=== PATIENT | female | born 1975 | race Two or more races ===

== ENCOUNTER → 2020-05-03 | Outpatient (CLI) | payer OTHER ==
[~2020-05-03] MED LIST: LOVA10TA PO; OMEP20TA62 PO; VALA500T4 PO
[2020-05-03 17:08] LABS: BASOPHILS % (AUTO) 1 % (0-1); EOSINOPHILS % (AUTO) 2 % (1-7); LYMPHOCYTES % (AUTO) 30 % (22-44); MEAN CORPUSCULAR HGB CONC 32.2 g/dL (32.4-35.8); MEAN PLATELET VOLUME 10.1 fL (7.4-10.4); MONOCYTES % (AUTO) 5 % (2-9); NEUTROPHILS % (AUTO) 63 % (42-75); PLATELET COUNT 465 x10^3/uL (130-400); RED BLOOD COUNT 4.18 x10^6/uL (3.82-5.3)
[2020-05-03 17:12] LABS: MD NO
[2020-05-03 17:13] LABS: ALBUMIN 3.9 g/dL (3.4-5.0); ANION GAP 6 mmol/L (5-15); CALCIUM 9.2 mg/dL (8.5-10.1); CHLORIDE 106 mmol/L (98-107)
[2020-05-03 17:16] LABS: MICROSCOPIC NOT IND
[2020-05-03 17:21] LABS: ALANINE AMINOTRANSFERASE 30 U/L (12-78); ALKALINE PHOSPHATASE 73 U/L (45-117); BILIRUBIN,TOTAL 0.2 mg/dL (0.2-1.0); CREATININE 0.94 mg/dL (0.55-1.02); TOTAL PROTEIN 7.4 g/dL (6.4-8.2)
== END | disposition home or self-care (01) ==
LOC: STAR 15:30
PROVIDERS: ATTEND Student in an Organized Health Care Education/Training Program
DX: Z01.812 Encounter for preprocedural laboratory examination (principal); Z20.828 Contact with and (suspected) exposure to other viral communicable diseases; N93.9 Abnormal uterine and vaginal bleeding, unspecified
CPT/HCPCS: 36415; 80053; 81003; 84702; 85025; 87635

== ENCOUNTER 2020-05-07 05:29 | Day surgery (SDC) | payer OTHER ==
[~2020-05-07] VITALS: Ht 160 cm; Wt 65.0 kg
[2020-05-07] MEDS ORDERED: CHLORHEXIDINE 15 ML UDC MM STA (06:04)
[2020-05-07] MEDS ORDERED: LACTATED RINGERS 1,000 ML IV SCH (06:30)
[2020-05-07 06:47] LABS: HCG UR SG 1.021 (1.003-1.030)
[2020-05-07] MEDS ORDERED: SILVER NITRATE STICK TP ONE (06:50)
[2020-05-07] MEDS ORDERED: FENTANYL PF 100 MCG/2ML ONE (07:10)
[2020-05-07] MEDS ORDERED: MIDAZOLAM 1 MG/ML, 2ML ONE (07:10)
[2020-05-07] MEDS ORDERED: PROPOFOL 10 MG/ML, 20ML ONE (07:11)
[2020-05-07] MEDS ORDERED: CEFAZOLIN 1,000 MG ONE ×2 (07:11)
[2020-05-07] MEDS ORDERED: ROCURONIUM 10MG/ML,5ML ONE (07:11)
[2020-05-07] MEDS ORDERED: LIDOCAINE-MPF 2% ,5ML ONE (07:11)
[2020-05-07] MEDS ORDERED: DEXAMETHASONE 4 MG/ML, 1ML ONE ×2 (07:12)
[2020-05-07] MEDS ORDERED: ONDANSETRON 2MG/ML, 2ML ONE (07:12)
[2020-05-07] MEDS ORDERED: ALBUTEROL SULFATE 2.5 MG/3 ML NPPB PRN (07:30)
[2020-05-07] MEDS ORDERED: FENTANYL PF 100 MCG/2ML IV PRN (07:30)
[2020-05-07] MEDS ORDERED: ACETAMINOPHEN 325 MG TABLET PO PRN (07:30)
[2020-05-07] MEDS ORDERED: MEPERIDINE/PF 25MG/0.5ML IVPush PRN (07:30)
[2020-05-07] MEDS ORDERED: ONDANSETRON 2MG/ML, 2ML IVPush PRN (07:30)
[2020-05-07] MEDS ORDERED: DIPHENHYDRAMINE 50 MG/ML, 1ML IVPush PRN (07:30)
[2020-05-07] MEDS ORDERED: OXYcodone 5 MG/5 ML ORAL.SOL UDC PO PRN (07:30)
[2020-05-07] MEDS ORDERED: HYDROmorphone 1 MG/ML, 1ML INJ IVPush PRN (07:30)
[2020-05-07] MEDS ORDERED: PROMETHAZINE 25 MG/ML, 1ML IVPush PRN (07:30)
[2020-05-07] MEDS ORDERED: DIAZEPAM 5 MG/ML, 2ML IVPush PRN (07:30)
[2020-05-07] MEDS ORDERED: KETOROLAC 30 MG/1 ML ONE (07:35)
[2020-05-07] MEDS ORDERED: SUGAMMADEX 200 MG/2 ML IVPush ONE (07:35)
[2020-05-07] MEDS ORDERED: OXYcodone 5 MG/5 ML ORAL.SOL UDC ONE (09:17)
[2020-05-07] MEDS ORDERED: ACETAMINOPHEN 650 MG/20.3 ML UDC ONE (09:17)
== END 2020-05-07 10:45 | disposition home or self-care (01) ==
LOC: OUT 05:29
PROVIDERS: ATTEND Student in an Organized Health Care Education/Training Program
DX: D25.0 Submucous leiomyoma of uterus (principal); N93.8 Other specified abnormal uterine and vaginal bleeding; K21.9 Gastro-esophageal reflux disease without esophagitis; Z82.49 Family history of ischemic heart disease and other diseases of the circulatory system; E78.5 Hyperlipidemia, unspecified; J45.909 Unspecified asthma, uncomplicated; Z98.890 Other specified postprocedural states; Z98.51 Tubal ligation status; Z79.899 Other long term (current) drug therapy; Z72.89 Other problems related to lifestyle
CPT/HCPCS: 36415; 58561; 58563; 81025; 86850; 86900; 88305; J0690; J1100; J1885; J2250; J2405; J2704; J3010; J7120